=== PATIENT | male | born 1960 | race Caucasian/White ===

== ENCOUNTER 2019-02-20 13:02 | Emergency (ER) | payer SELFPAY ==
[~2019-02-20] VITALS: Ht 182.9 cm; Wt 84.0 kg
[~2019-02-20 13:02] MED LIST: LIDOcaine 1% W/epiNEPHrine 1:100,000 20ml vial ONE
[2019-02-20 13:04] VITALS: BP 92/76
[2019-02-20] MEDS ORDERED: bacitracin 15gm ointment TP ONE (15:35)
[2019-02-20] MEDS ORDERED: CEPH250T PO (16:58)
== END 2019-02-20 17:37 | disposition home or self-care (01) ==
LOC: ER 13:03
DX: S51.812A Laceration without foreign body of left forearm, initial encounter (principal); Z79.2 Long term (current) use of antibiotics; W45.8XXA Other foreign body or object entering through skin, initial encounter; Y93.89 Activity, other specified; Y92.89 Other specified places as the place of occurrence of the external cause; Y99.8 Other external cause status
CPT/HCPCS: 12001; 73090; 99283